=== PATIENT | female | born 1990 | race Caucasian/White ===

== ENCOUNTER 2017-01-23 05:16 | Day surgery (SDC) | payer BC ==
[~2017-01-23] VITALS: Ht 165.1 cm; Wt 72.0 kg
[2017-01-23] MEDS ORDERED: NAPR-874 PO (06:06)
[2017-01-23 06:07] VITALS: BP 118/72
[2017-01-23] MEDS ORDERED: LACTATED RINGERS 1,000 ML IV SCH (06:14)
[2017-01-23 06:17] LABS: HCG UR OBC PASS
[2017-01-23] MEDS ORDERED: MIDAZOLAM 1 MG/ML, 2ML ONE (06:23)
[2017-01-23] MEDS ORDERED: FENTANYL PF 100 MCG/2ML ONE ×3 (06:23→08:09)
[2017-01-23] MEDS ORDERED: LIDOCAINE/PF 1%-EPI 1:200K, 30ML ONE (06:41)
[2017-01-23] MEDS ORDERED: ROPIvacaine/PF 0.5%, 30 ML ONE (06:41)
[2017-01-23] MEDS ORDERED: OXYcodone 5 MG/5 ML ORAL.SOL UDC PO PRN (07:30)
[2017-01-23] MEDS ORDERED: MIDAZOLAM 1 MG/ML, 2ML IV PRN (07:30)
[2017-01-23] MEDS ORDERED: MEPERIDINE/PF 25MG/0.5ML IVPush PRN (07:30)
[2017-01-23] MEDS ORDERED: ONDANSETRON 2MG/ML, 2ML IVPush PRN (07:30)
[2017-01-23] MEDS ORDERED: LABETALOL 5MG/ML, 20ML IV PRN (07:30)
[2017-01-23] MEDS ORDERED: HYDROmorphone 1 MG/ML, 1ML IV PRN (07:30)
[2017-01-23] MEDS ORDERED: PROMETHAZINE 25 MG/ML, 1ML IV PRN (07:30)
[2017-01-23] MEDS ORDERED: OXYcodone 5 MG/5 ML ORAL.SOL UDC ONE (08:09)
[2017-01-23] MEDS ORDERED: KETOROLAC 30 MG/1 ML ONE (08:16)
[2017-01-23] MEDS ORDERED: HYDROmorphone 2 MG/ML, 1ML ONE (08:16)
[2017-01-23] MEDS: FENTANYL PF 100 MCG/2ML IV PRN ×2 (08:18→08:25)
[2017-01-23] MEDS ORDERED: LORazepam 2 MG/ML, 1ML ONE (08:29)
[2017-01-23] MEDS ORDERED: KETOROLAC 30 MG/1 ML IVPush ONE (08:30)
[2017-01-23] MEDS ORDERED: LORazepam 2 MG/ML, 1ML IVPush ONE (09:00)
[2017-01-23] MEDS ORDERED: DEXAMETHASONE 4 MG/ML, 1ML ONE (11:06)
[2017-01-23] MEDS ORDERED: CEFAZOLIN 1,000 MG ONE (11:06)
[2017-01-23] MEDS ORDERED: ONDANSETRON 2MG/ML, 2ML ONE (11:06)
[2017-01-23] MEDS ORDERED: METOCLOPRAMIDE 5 MG/ML, 2ML ONE (11:06)
[2017-01-23] MEDS ORDERED: PROPOFOL 10 MG/ML, 20ML ONE (11:06)
== END 2017-01-23 10:45 | disposition home or self-care (01) ==
LOC: OUT 05:16
PROVIDERS: ATTEND Orthopaedic Surgery
DX: S83.511A Sprain of anterior cruciate ligament of right knee, initial encounter (principal); M65.861 Other synovitis and tenosynovitis, right lower leg; W19.XXXA Unspecified fall, initial encounter; Y93.23 Activity, snow (alpine) (downhill) skiing, snowboarding, sledding, tobogganing and snow tubing; Y92.9 Unspecified place or not applicable; Y99.9 Unspecified external cause status
CPT/HCPCS: 29875; 29888; 73560; 76000; 81025; C1713; C1762; J0690; J1100; J1170; J1885; J2060; J2250; J2405; J2704; J2765; J2795; J3010; J3490; J7120